=== PATIENT | male | born 1960 | race Caucasian/White ===

== ENCOUNTER 2023-10-17 13:57 | Emergency (ER) | payer SELFPAY ==
[2023-10-17 14:09] VITALS: BP 135/94
--- NOTE | 2023-10-17 14:15 | ED.PDOC.TR ---
ED Provider Triage
-
Patient seen by provider in Triage?: Seen in Triage
62-year-old male presenting to the emergency department after he was doing some woodworking and the piece of wood recoiled hit him directly in the nose has had ongoing significant bleeding and pain to the area. Did not blackout not on blood
thinners. Denies additional injuries able to swallow and breathe normally. Bleeding has slowed since beginning. He does have some active bleeding here no obvious septal nasal hematoma. Normal extraocular movements no clinical evidence of orbital
fracture. No neck pain patient did have a moderate mechanism plan for CT scan of the head and face for further assessment. Otherwise clamp applied to the nose which seem to control bleeding initially.
--- NOTE | 2023-10-17 16:33 | ED.GENMED ---
History of Present Illness
General
Chief Complaint: Facial Problem
Time Seen by Provider: 10/17/23 15:52
Travel History
Have you had any contact with someone who has COVID-19?: No
Do you have any symptoms of coronavirus? Fever > 100 degrees, chills, cough, shortness of breath, sore throat, loss of taste or smell, muscle aches, or headache?: No
History of Present Illness
History of Present Illness:
62-year-old male presents to the emergency department for evaluation of facial injury sustained when a large tree branch struck him in the face. He is concerned for the degree of nosebleeding. Not on blood thinners.
Review of Systems
Review of Systems
Allergies reviewed?: Yes
All Other Systems: ROS reviewed and negative except as documented in HPI and ROS
Phy Exam
Physical Exam
Physical Exam:
GEN: Well appearing, NAD, WDWN
HEENT: Oral mucosa moist, no scleral icterus. Diffuse swelling to the nose with no obvious deformity, scant nosebleeding present bilaterally. No evidence for nasal septal hematoma bilaterally
Cardiac: Regular rate
Lung: No respiratory distress, no tachypnea
MSK: No gross deformity or injuries
Skin: Good color, no pallor or jaundice, no rashes
Neuro: AO x3, moves all extremities freely
Psych: Calm, cooperative
Course
Orders/Labs/Results
Orders:
Orders
10/17/23 14:15
CT Facial Bones W/o Iv Contras Urgent
Comment:
Reason For Exam: hit nose with tree
CT Head W/o Iv Contrast Urgent
Comment:
Reason For Exam: hit face with wood
Vital Signs
Initial and Last Documented VS:
Initial Vital Signs
Temp Pulse Resp BP Pulse Ox
98.1 F 105 18 135/94 97
10/17/23 14:09 10/17/23 14:09 10/17/23 14:09 10/17/23 14:09 10/17/23 14:09
Last Documented Vital Signs
Temp Pulse Resp BP Pulse Ox
98.1 F 105 18 135/94 97
10/17/23 14:09 10/17/23 14:09 10/17/23 14:09 10/17/23 14:09 10/17/23 14:09
MDM/Problems Addressed
MDM/Problems Addressed:
Workup reveals a nondisplaced nasal bone fracture. The CT report suggesting nasal septal hematoma was likely bloody debris within the naris, nares irrigated and assessed with no evidence for hematoma.
*Critical Care Note
Total Time (30-74mins, 75-104mins- exclusive of procedures): Not Applicable
ED Attending Note
-
Portions of this chart may have been created with voice recognition software.� Occasional wrong word or��sound alike� substitutions may have occurred due to the inherent limitations of voice recognition software.
Discharge Plan
Departure
Patient Disposition: Home (Routine Discharge)
Date of Disposition: 10/17/23
Time of Disposition: 17:10
Patient with high blood pressure during this ER visit?: No
Discharge Problem:
Fracture of nasal bone
Instructions: Nose fracture
Referrals:
Carol Justice CRNP [Family Provider] -
Interventions
Interventions:
*Risk Screen - Suicide Last Done: 10/17/23 14:09
*Neglect/Abuse Screening Last Done: 10/17/23 14:09
ED- Fall Risk Assessment Last Done: 10/17/23 15:56
*ED COVID-19 Vaccine History Last Done: 10/17/23 14:09
*Nursing Disposition Last Done: 10/17/23 17:32
ED- Neurological Assessment Last Done: 10/17/23 15:56
ED-Skin Assessment Last Done: 10/17/23 15:56
Discharge Date and Time
Discharge Date/Time: 10/17/23 17:33
Print Language: [id number]
== END 2023-10-17 17:33 | disposition home or self-care (01) ==
LOC: EMR 13:57
PROVIDERS: EMERGENCY PHYSICIAN Emergency Medicine; FAMILY PHYSICIAN Nurse Practitioner
DX: S02.2XXA Fracture of nasal bones, initial encounter for closed fracture (principal); W20.8XXA Other cause of strike by thrown, projected or falling object, initial encounter
CPT/HCPCS: 99284; 70450; 70486